=== PATIENT | female | born 1925 | race Caucasian/White ===

== ENCOUNTER 2016-07-14 12:57 | Emergency (ER) | payer MEDICARE, BC ==
[2016-07-14 13:14] VITALS: BP 162/76
== END 2016-07-14 13:21 | disposition left against medical advice (07) ==
LOC: ED 12:57
DX: R22.1 Localized swelling, mass and lump, neck (principal); Z53.21 Procedure and treatment not carried out due to patient leaving prior to being seen by health care provider